=== PATIENT | male | born 1985 | race Caucasian/White ===

== ENCOUNTER 2018-07-19 18:05 | Emergency (ER) | payer OTHER ==
[~2018-07-19] VITALS: Ht 182.9 cm; Wt 72.6 kg
[~2018-07-19 18:05] MED LIST: DIPHENHIST50 MG PO; IBUPROFEN 800800 M1 PO; PENICILLIN VK250 MG PO; REGLAN 10 MG TA10 MG PO; ULTRAM 50MG TAB50 MG PO
[2018-07-19 19:01] LABS: INFLUENZA A ANTIGEN None Detected (None Detect); INFLUENZA B ANTIGEN None Detected (None Detect)
[2018-07-19 19:27] VITALS: BP 118/65
== END 2018-07-19 19:28 | disposition home or self-care (01) ==
LOC: M.ERS 18:05
PROVIDERS: Physician Assistant
DX: R50.9 Fever, unspecified (principal); M79.10 Myalgia, unspecified site; G43.909 Migraine, unspecified, not intractable, without status migrainosus